=== PATIENT | male | born 1970 | race Two or more races ===

== ENCOUNTER 2025-11-14 17:26 | Emergency (ER) | payer BC ==
[~2025-11-14] VITALS: Ht 185.4 cm; Wt 111.8 kg
[2025-11-14 17:42] VITALS: BP 162/107; PULSE 58; RESP 18; O2SAT 98
[2025-11-14] MEDS ORDERED: CEPH-585 PO (19:20)
[2025-11-14] MEDS ORDERED: IBUP-1984 PO (19:20)
--- NOTE | 2025-11-14 19:21 | Physician Documentation ---
History of Present Illness ~ Chief Complaint: Finger pain Stated Complaint: INFECTED FINGER Time Seen by MD: 18:22 HPI Left index finger infection x 5 days, edematous, erythematous with fluctuance to the distal left index finger of the nail bed consistent with a paronychia. No D IP involvement. Full extensor and flexor use. Tetanus within 5 years: No Medication Reconciliation Allergies: Coded Allergies: No Known Allergies (Unverified , 11/14/25) Scheduled Cephalexin*Monohydrate* (Keflex*), 1 CAP PO TID Ibuprofen* (Motrin*), 1 TAB PO Q8H Review of Systems All Other Systems at this time: Reviewed and Negative ROS See HPI Musculoskeletal: Reports: see HPI Physical Exam Vital Signs: RN Vital Signs have been reviewed: Yes, Temperature: 97.8, Source: Temporal, Heart Rate: 58, Respiratory Rate: 18, BP: 162/107, Pulse Oximetry: 98, Weight: 111.800 Oxygen Flow Rate: 0 General Appearance: alert, WD/WN, mild distress EENT: PERRL/EOMI Respiratory: no respiratory distress Chest: no accessory muscle use Cardiovascular: normal peripheral pulses Hand: normal inspection Digit: soft tissue tenderness Digit Strength: normal Nail: normal inspection, paronychia (Left index finger with a erythema, fluctuance) Nail Bed: normal inspection Distal Function: normal pulse Procedures I&D Procedure : Site: Left index finger Anesthesia: none Blade Size: 11 Prep/Supplies: betadine prep Incision: pus drained Tolerated Procedure Well?: yes, no complications Progress Results/Orders Results/Orders Vital Signs 11/14/25 17:42 Temp 97.8 Pulse 58 Resp 18 B/P (MAP) 162/107 Pulse Ox 98 O2 Flow Rate 0 Medical Decision Making Additional information obtaine: N/A Findings Left index finger paronychia requiring incision and drainage. Verbal consent for incision and drainage. Wound prepped with Betadine and with two stab incisions with a 11. Blade with copious purulent discharge. Patient tolerated procedure well. Recommendations are for Betadine soaks, ibuprofen and we will be placed on Keflex. No clinical suspicion for tenosynovitis General Diff Dx:Considerations: Include: Other Shoulder Diff Dx:Consideration: Include: Other (Contributory) Elbow Diff Dx:Considerations: Include: Other (Contributory) Wrist Diff Dx:Considerations: Include: Other (Contributory) Hand Diff Dx:Considerations: Include: Septic Finger Diff Dx:Considerations: Include: Abrasion, Cellulitis, Contusion, Dislocation, Fracture, Hematoma, Laceration, Neurovascular injury, Open fracture, Subungual hematoma, Other Departure Disposition: 01 HOME / SELF CARE / HOMELESS Impression: Primary Impression: Paronychia of finger Qualified Codes: L03.012 - Cellulitis of left finger Condition: Improved Discharge Instructions: Paronychia Additional Instructions: Please obtain and begin antibiotics and pain medicine as directed. Please do finger soaks two to 3 times a day. Please follow up with the primary care p hysician and/or return for wound assessment and 72-96 hours. Return sooner if symptoms worsen. Thank you for visiting emergency department [facility]. Referrals: NO PRIMARY CARE PROVIDER (PCP) Prescriptions Ibuprofen* (Motrin*) 400 Mg Tablet 1 TAB PO Q8H for pain or fever for 10 Days, #30 TAB Prov: DANIELA STONE 11/14/25 Cephalexin*Monohydrate* (Keflex*) 500 Mg Capsule 1 CAP PO TID, #21 CAP Prov: DANIELA STONE 11/14/25 Education Educated: Patient Educated regarding: diagnosis, treatment, prognosis, need for follow up Signature Scribe Signature: . Attestation: . DANIELA STONE Nov 14, 2025 19:21
[2025-11-14 19:29] VITALS: TEMP 97.8
== END 2025-11-14 19:53 | disposition home or self-care (01) ==
LOC: ER 17:27
DX: L03.012 Cellulitis of left finger (principal)
CPT/HCPCS: 10060; 99284; A6449